=== PATIENT | female | born 1985 | race Caucasian/White ===

== ENCOUNTER 2016-07-02 18:16 | Emergency (ER) | payer MEDICAID, OTHER ==
[~2016-07-02] VITALS: Ht 162.6 cm; Wt 145.0 kg
[~2016-07-02 18:16] MED LIST: ALBU8I INH; BACT800T5 PO; CEPH500C3 PO; ROBA750T3 PO
[2016-07-02 18:17] VITALS: BP 172/82; PULSE 75; RESP 15; TEMP 98; O2SAT 96
[2016-07-02] MEDS ORDERED: ROBA750T PO (19:11)
[2016-07-02] MEDS ORDERED: DICL75TA PO (19:11)
[2016-07-02] MEDS ORDERED: METHOCARBAMOL 500 MG TAB PO ONE (19:15)
[2016-07-02] MEDS ORDERED: NAPROXEN 500 MG TAB PO ONE (19:15)
--- NOTE | 2016-07-02 19:17 | PD ---
HPI Chief Complaint: Back/ Neck Pain or Injury Time Seen by Provider: 19:13 Travel History International Travel<30 days: No Contact w/Intl Traveler<30days: No Traveled to known affect area: No History of Present Illness HPI 31-year-old white female presents to emergency Department with complaints of lower back pain. She states that she was bending over in her car and developed pain when she went to stand up. She states the pain was moderate to severe. She denies any history of direct trauma. She denies any history of back problems in the past. She denies any nausea vomiting. No numbness, tingling or weakness. No dysuria, frequency or hematuria. Worse with bending and movement some relief remaining still. PFSH Past Medical History Hx Anticoagulant Therapy: No Anemia: Yes Asthma: Yes Anxiety: Yes Depression: Yes Cardiovascular Problems: Yes (HTN) Chemotherapy: No Cerebrovascular Accident: No Diabetes: No Diminished Hearing: Yes (NEVER BEEN CONFIRMED) Gestational Age in Weeks: 17 Hiatal Hernia: Yes Reproductive: Yes (ENDOMETRIOSIS) Respiratory: Yes (ASTHMA) Immunizations Current: No Pneumonia: Yes (2009) Tetanus Vaccination: < 5 Years ?: Not LMP: 06/21/16 Menopausal: No : 3 Para: 2 Miscarriage: 1 : 0 Ectopic : No Ovarian Cysts: Yes Dilation and Curettage (D&C): Yes Tubal Ligation: No Past Surgical History Abdominal Surgery: Yes (EXPLORATORY LAP) Appendectomy: Yes (2009) Section: Yes (X 2) Gynecologic Surgery: Yes (endometriosis) Hysterectomy: No Social History Alcohol Use: Yes (occasional) Tobacco Use: Yes Substance Use: Yes (MARIJUANA ) Allergies-Medications (Allergen,Severity, Reaction): Coded Allergies: Adhesives (Verified Allergy, Severe, RASH, 07/02/16) Dairy (Verified Allergy, Severe, CONGESTION, 07/02/16) Latex (Verified Allergy, Severe, RASH, 07/02/16) Reported Meds & Prescriptions Reported Meds & Active Scripts Active Diclofenac Sodium DR (Diclofenac Sodium) 75 Mg Tabdr 75 Mg PO BID Robaxin (Methocarbamol) 750 Mg Tab 1,500 Mg PO TID 7 Days Review of Systems Except as stated in HPI: all other systems reviewed are Neg Physical Exam Narrative GENERAL: Well-developed, well-nourished in no apparent distress. Nontoxic appearing. HEAD: Normocephalic, atraumatic. EYES: Pupils equal round and reactive. Extraocular motions intact. No scleral icterus. No injection or drainage. ENT: Nose clear. Throat without erythema, tonsillar hypertrophy or exudate. Uvula midline. Airway patent. NECK: Trachea midline. Supple, nontender, moves head freely. No central bony tenderness or spasm. CARDIOVASCULAR: Regular rate and rhythm without murmurs, gallops, or rubs. RESPIRATORY: Clear to auscultation. Breath sounds equal bilaterally. No wheezes , rales, or rhonchi. GASTROINTESTINAL: Abdomen soft, non-tender, nondistended. No hepato-splenomegaly , or palpable masses. No guarding. EXTREMITIES: No clubbing, cyanosis, or edema. No joint tenderness. BACK: Diffuse lower back tenderness without deformity. No flank tenderness. Decreased for flexion to 70. No saddle anesthesia. No weakness. No gross spasm. NEUROLOGICAL: Awake, alert and oriented x 3 .Cranial nerves grossly intact. Motor and sensory grossly within normal limits. Normal speech. Data Data Last Documented VS Vital Signs Date Time Temp Pulse Resp B/P Pulse Ox O2 Delivery O2 Flow Rate FiO2 07/02/16 18:17 98.0 75 15 172/82 96 Orders Naproxen (Naprosyn) (07/02/16 19:15) Methocarbamol (Robaxin) (07/02/16 19:15) [facility] Medical Decision Making Medical Screen Exam Complete: Yes Emergency Medical Condition: Yes Medical Record Reviewed: Yes Differential Diagnosis MDM: High Differential diagnoses: AAA,Fracture, sprain, strain, HNP, nerve or vascular injury, epidural abscess, pilonidal cyst, pyelonephritis, UTI, nephrolithiasis, ureterolithiasis Narrative Course This is acute back strain Patient given Naprosyn 500 and Robaxin 1500 mg by mouth. Diagnosis Primary Impression: aCUTE BACK STRAIN Patient Instructions: General Instructions Departure Forms: Tests/Procedures, Work Release Special Instructions: No work 2 days. Additional Instructions: Rest. Ice for the next 3 days followed by heat . Robaxin and Voltaren. Follow-up with a primary care doctor in one week. Return to the ER for emergencies. Med/Other Pt SpecificInfo: Prescription(s) given Scripts Diclofenac Sodium DR 75 Mg Tabdr75 Mg PO BID #20 TAB Prov:Carlos Arora MD 07/02/16 Methocarbamol (Robaxin)750 Mg Tab1,500 Mg PO TID 7 Days Prov:Carlos Arora MD 07/02/16 Disposition: 01 DISCHARGE HOME Condition: Stable Epi Russell Jul 02, 2016 19:17
== END 2016-07-02 19:25 | disposition home or self-care (01) ==
LOC: NEPB 18:16
DX: S39.012A Strain of muscle, fascia and tendon of lower back, initial encounter (principal); J45.909 Unspecified asthma, uncomplicated; I10 Essential (primary) hypertension; Z72.0 Tobacco use; X50.1XXA Overexertion from prolonged static or awkward postures, initial encounter
CPT/HCPCS: 99283

== ENCOUNTER 2016-08-08 21:04 | Emergency (ER) | payer MEDICAID, OTHER ==
[~2016-08-08] VITALS: Ht 162.6 cm; Wt 145.0 kg
[~2016-08-08 21:04] MED LIST changes: -ALBU8I INH; -BACT800T5 PO; -CEPH500C3 PO; +DICL75TA PO; +ROBA750T PO; -ROBA750T3 PO
[2016-08-08 21:06] VITALS: BP 139/106; PULSE 81; RESP 16; TEMP 98.7; O2SAT 98
[2016-08-08] MEDS ORDERED: ALBUAER3 INH (21:43)
[2016-08-08] MEDS ORDERED: SODIUM CHLOR 0.9% 1000 ML INJ 1,000 ML IV SCH (21:48)
[2016-08-08] MEDS ORDERED: SODIUM CHLORIDE 0.9% FLUSH 10 ML FLUSH IV FLUSH PRN (22:00)
[2016-08-08] MEDS ORDERED: ONDANSETRON HCL 4 MG/2 ML VIAL IVP ONE (22:00)
[2016-08-08 22:23] LABS: AUTOMATED NEUTROPHIL # 5.5 TH/MM3 (1.8-7.7); BASOPHIL # 0.1 TH/MM3 (0-0.2); BASOPHIL % 0.5 % (0.0-2.0); EOSINOPHIL # 0.2 TH/MM3 (0-0.4); EOSINOPHIL % 1.9 % (0.0-4.0); HEMATOCRIT 38.5 % (35.0-46.0); HEMO FLAGS DIFF FINAL; LYMPHOCYTE # 3.3 TH/MM3 (1.0-4.8); MEAN CORPUSCULAR HGB CONC 32.1 % (32.0-36.0); MONO % 11.8 % (0.0-8.0); NEUT % 53.8 % (16.0-70.0); PLATELET COUNT 354 TH/MM3 (150-450); RED BLOOD COUNT 4.58 MIL/MM3 (4.00-5.30); RED CELL DISTRIBUTION WIDTH 15.5 % (11.6-17.2); WHITE BLOOD COUNT 10.3 TH/MM3 (4.0-11.0)
[2016-08-08 22:28] LABS: BLOOD, URINE NEG (NEG); COMMENT (UR) CULT NOT INDICATED; CULTURE IF INDICATED CULT NOT INDICATED; GLUCOSE,URINE NEG (NEG); KETONE, URINE NEG (NEG); MUCUS URINE FEW /lpf (OCC); NITRITE,URINE NEG (NEG); SQUAMOUS EPITHELIAL CELL URINE 6 /hpf (0-5); URINE COLOR YELLOW (YELLW/STRAW)
[2016-08-08 22:30] LABS: APTT (PATIENT) 28.5 SEC (24.3-30.1); INTERNATIONAL NORMALIZED RATIO 0.9 RATIO; PROTHROMBIN TIME - PATIENT 10.2 SEC (9.8-11.6)
[2016-08-08 22:41] LABS: ANION GAP 7 MEQ/L (5-15); AST (GOT) 13 U/L (15-37); BICARBONATE 29.9 MEQ/L (21.0-32.0); BLOOD UREA NITROGEN 8 MG/DL (7-18); CHLORIDE 105 MEQ/L (98-107); GLOMERULAR FILTRATION RATE 112 ML/MIN (>89); POTASSIUM 3.7 MEQ/L (3.5-5.1); SODIUM (NA) 142 MEQ/L (136-145)
[2016-08-08 22:46] LABS: ALKALINE PHOSPHATASE 83 U/L (45-117); ALT (GPT) 21 U/L (10-53); BETA HCG QUANT LESS THAN 1 MIU/ML (0-5); TOTAL BILIRUBIN ADULT 0.2 MG/DL (0.2-1.0)
[2016-08-08] MEDS ORDERED: AMOX500T PO (22:58)
--- NOTE | 2016-08-08 22:58 | PD ---
HPI Chief Complaint: GI Complaint Time Seen by Provider: 21:44 Travel History International Travel<30 days: No Contact w/Intl Traveler<30days: No Traveled to known affect area: No History of Present Illness HPI 31-year-old female here for evaluation of swollen tonsils, painful swallowing, and 3 episodes of vomiting. Symptoms have been going on for last 4 days. She is having some mild epigastric discomfort. She has had subjective fevers and chills. She is able to swallow, however she states it is difficult because of the pain. PFSH Past Medical History Hx Anticoagulant Therapy: No Anemia: Yes Asthma: Yes Anxiety: Yes Depression: Yes Cardiovascular Problems: Yes (HTN) Chemotherapy: No Cerebrovascular Accident: No Diabetes: No Diminished Hearing: Yes (NEVER BEEN CONFIRMED) Gestational Age in Weeks: 17 Hiatal Hernia: Yes Reproductive: Yes (ENDOMETRIOSIS) Respiratory: Yes (ASTHMA) Immunizations Current: No Pneumonia: Yes (2009) Tetanus Vaccination: > 5 Years Influenza Vaccination: No ?: Unknown LMP: 07/19/16 Menopausal: No : 3 Para: 2 Miscarriage: 1 : 0 Ectopic : No Ovarian Cysts: Yes Dilation and Curettage (D&C): Yes Tubal Ligation: No Past Surgical History Abdominal Surgery: Yes (EXPLORATORY LAP) Appendectomy: Yes (2009) Section: Yes (X 2) Gynecologic Surgery: Yes (endometriosis) Hysterectomy: No Social History Alcohol Use: Yes (occasional) Tobacco Use: Yes Substance Use: Yes (MARIJUANA ) Allergies-Medications (Allergen,Severity, Reaction): Coded Allergies: Adhesives (Verified Allergy, Severe, RASH, 08/08/16) Dairy (Verified Allergy, Severe, CONGESTION, 08/08/16) Latex (Verified Allergy, Severe, RASH, 08/08/16) Reported Meds & Prescriptions Reported Meds & Active Scripts Active Reported Proair Hfa 8.5 GM Inh (Albuterol Sulfate) 90 Mcg/Act Aer 2 Puff INH Q6H PRN 108 mcg/actuation Review of Systems Except as stated in HPI: all other systems reviewed are Neg Physical Exam Narrative GENERAL: Well-developed, well-nourished, overweight, comfortable, no acute distress. SKIN: Focused skin assessment warm/dry. No rash. HEAD: Atraumatic. Normocephalic. EYES: Pupils equal and round. No scleral icterus. No injection or drainage. ENT: No nasal bleeding or discharge. Mucous membranes pink and moist. Pharynx is erythematous with bilateral tonsillar exudates. Uvula is midline. Normal phonation. NECK: Trachea midline. No JVD. No nuchal rigidity. CARDIOVASCULAR: Regular rate and rhythm. RESPIRATORY: No accessory muscle use. Clear to auscultation. Breath sounds equal bilaterally. GASTROINTESTINAL: Abdomen soft, non-tender, nondistended. MUSCULOSKELETAL: No obvious deformities. No clubbing. No cyanosis. No edema. NEUROLOGICAL: Awake and alert. No obvious cranial nerve deficits. Motor grossly within normal limits. Normal speech. PSYCHIATRIC: Appropriate mood and affect; insight and judgment normal. Data Data Last Documented VS Vital Signs Date Time Temp Pulse Resp B/P Pulse Ox O2 Delivery O2 Flow Rate FiO2 08/08/16 21:06 98.7 81 16 139/106 98 Room Air Orders Complete Blood Count With Diff (08/08/16 21:48) Comprehensive Metabolic Panel (08/08/16 21:48) Prothrombin Time / Inr (Pt) (08/08/16 21:48) Act Partial Throm Time (Ptt) (08/08/16 21:48) Urinalysis - C+S If Indicated (08/08/16 21:48) Iv Access Insert/Monitor (08/08/16 21:48) Ecg Monitoring (08/08/16 21:48) Oximetry (08/08/16 21:48) Ondansetron Inj (Zofran Inj) (08/08/16 22:00) Sodium Chlor 0.9% 1000 Ml Inj (Ns 1000 M (08/08/16 21:48) Sodium Chloride 0.9% Flush (Ns Flush) (08/08/16 22:00) Ed Urine Pregnancytest Poc (08/08/16 21:48) Group A Rapid Strep Screen (08/08/16 21:49) Monoscreen (08/08/16 21:49) Beta Hcg (Quant/Titer) (08/08/16 22:00) Ketorolac Inj (Toradol Inj) (08/08/16 23:00) Dexamethasone Inj (Decadron Inj) (08/08/16 23:00) Labs Laboratory Tests Test 08/08/16 08/08/16 11:59 22:00 Prothrombin Time 10.2 SEC Prothromb Time International 0.9 RATIO Ratio Activated Partial 28.5 SEC Thromboplast Time White Blood Count 10.3 TH/MM3 Red Blood Count 4.58 MIL/MM3 Hemoglobin 12.4 GM/DL Hematocrit 38.5 % Mean Corpuscular Volume 84.0 FL Mean Corpuscular Hemoglobin 27.0 PG Mean Corpuscular Hemoglobin 32.1 % Concent Red Cell Distribution Width 15.5 % Platelet Count 354 TH/MM3 Mean Platelet Volume 8.3 FL Neutrophils (%) (Auto) 53.8 % Lymphocytes (%) (Auto) 32.0 % Monocytes (%) (Auto) 11.8 % Eosinophils (%) (Auto) 1.9 % Basophils (%) (Auto) 0.5 % Neutrophils # (Auto) 5.5 TH/MM3 Lymphocytes # (Auto) 3.3 TH/MM3 Monocytes # (Auto) 1.2 TH/MM3 Eosinophils # (Auto) 0.2 TH/MM3 Basophils # (Auto) 0.1 TH/MM3 CBC Comment DIFF FINAL Differential Comment Urine Color YELLOW Urine Turbidity CLEAR Urine pH 7.0 Urine Specific Bowden 1.021 Urine Protein TRACE mg/dL Urine Glucose (UA) NEG mg/dL Urine Ketones NEG mg/dL Urine Occult Blood NEG Urine Nitrite NEG Urine Bilirubin NEG Urine Urobilinogen LESS THAN 2.0 MG/DL Urine Leukocyte Esterase NEG Urine RBC 3 /hpf Urine WBC 3 /hpf Urine Squamous Epithelial 6 /hpf Cells Urine Mucus FEW /lpf Microscopic Urinalysis Comment CULT NOT INDICATED Sodium Level 142 MEQ/L Potassium Level 3.7 MEQ/L Chloride Level 105 MEQ/L Carbon Dioxide Level 29.9 MEQ/L Anion Gap 7 MEQ/L Blood Urea Nitrogen 8 MG/DL Creatinine 0.63 MG/DL Estimat Glomerular Filtration 112 ML/MIN Rate Random Glucose 80 MG/DL Calcium Level 8.8 MG/DL Total Bilirubin 0.2 MG/DL Aspartate Amino Transf 13 U/L (AST/SGOT) Alanine Aminotransferase 21 U/L (ALT/SGPT) Alkaline Phosphatase 83 U/L Total Protein 7.8 GM/DL Albumin 3.3 GM/DL Human Chorionic Gonadotropin, LESS THAN 1 Quant MIU/ML Monoscreen NEG MDM Medical Decision Making Medical Screen Exam Complete: Yes Emergency Medical Condition: Yes Differential Diagnosis Pharyngitis, strep pharyngitis, mono, dehydration, peritonsillar abscess/ retropharyngeal abscess unlikely Narrative Course Vital signs show heart rate 81, blood pressure 139/106, pulse ox 98% on room air , oral temp of 98.7F. CBC is unremarkable. CMP is unremarkable. Beta hCG is negative. UA is not suggestive of UTI. Steele is negative. Group A strep is positive. The patient was made aware of all findings. She is resting comfortably. She was given a dose of Decadron and IV Toradol here in the emergency department. She was also given a dose of amoxicillin and will be discharged home with a prescription for amoxicillin. PMD follow-up this week. She was informed on when to return to the emergency department. She verbalizes understanding and agreement with plan. Diagnosis Primary Impression: Strep pharyngitis Referrals: Primary Care Physician 3 days Additional Instructions: Follow-up with a primary care physician this week. Take antibiotics as prescribed. Stay hydrated with plenty of fluids. Return to the emergency department for worsening symptoms or any other concerns. Scripts Amoxicillin 500 Mg Tab1,000 Mg PO DAILY 10 Days Ref 0 Prov:Brandon Bustamante MD 08/08/16 Disposition: 01 DISCHARGE HOME Condition: Stable Brandon Bustamante MD Aug 08, 2016 22:58
[2016-08-08] MEDS ORDERED: DEXAMETHASONE SOD PHOS 20 MG/5 ML VIAL IV PUSH ONE (23:00)
[2016-08-08] MEDS ORDERED: AMOXICILLIN (TRIHYDRATE) 500 MG CAP PO ONE (23:00)
[2016-08-08] MEDS ORDERED: KETOROLAC TROMETHAMINE 30 MG/ML (IVP) VIAL IV PUSH ONE (23:00)
[2016-08-08] MEDS ORDERED: diphenhydrAMINE HCL 50 MG/ML VIAL IV PUSH ONE (23:30)
[2016-08-08 23:32] VITALS: BP 138/98
== END 2016-08-08 23:33 | disposition home or self-care (01) ==
LOC: NEPD 21:04
DX: J02.0 Streptococcal pharyngitis (principal); I10 Essential (primary) hypertension; B95.1 Streptococcus, group B, as the cause of diseases classified elsewhere
CPT/HCPCS: 80053; 81001; 84702; 84703; 85025; 85610; 85730; 86308; 87880; 96361; 96374; 96375; 99283; J1100; J1200; J1885; J2405; J7030

== ENCOUNTER 2016-11-13 09:43 | Emergency (ER) | payer MEDICAID, OTHER ==
[~2016-11-13] VITALS: Ht 162.6 cm; Wt 125.0 kg
[~2016-11-13 09:43] MED LIST changes: +ALBUAER3 INH; +AMOX500T PO; -DICL75TA PO; -ROBA750T PO
[2016-11-13 09:46] VITALS: BP 161/90; PULSE 84; RESP 20; TEMP 99.5; O2SAT 97
--- NOTE | 2016-11-13 10:02 | PD ---
HPI Chief Complaint: Pain: Acute or Chronic Time Seen by Provider: 09:56 Travel History International Travel<30 days: No Contact w/Intl Traveler<30days: No Traveled to known affect area: No History of Present Illness HPI 31-year-old obese female presents the emergency department with history of right foot and ankle pain for several weeks, worse when she first gets up and with standing, presents the emergency department with increased pain in the right calf and thigh over the past 2 days. Patient denies fever, chills, numbness, low back pain, weakness, or cough or shortness of breath. She denies any specific injury. Pain is 8/10 and worse with palpation and movement. She is allergic to adhesives, dairy, and latex. PFSH Past Medical History Hx Anticoagulant Therapy: No Anemia: Yes Asthma: Yes Anxiety: Yes Depression: Yes Cardiovascular Problems: Yes (HTN) Chemotherapy: No Cerebrovascular Accident: No Diabetes: No Diminished Hearing: Yes (NEVER BEEN CONFIRMED) Gestational Age in Weeks: 17 Hiatal Hernia: Yes Reproductive: Yes (ENDOMETRIOSIS) Respiratory: Yes (ASTHMA) Immunizations Current: No Pneumonia: Yes (2009) ?: Not LMP: 10/17/16 Menopausal: No : 3 Para: 2 Miscarriage: 1 : 0 Ectopic : No Ovarian Cysts: Yes Dilation and Curettage (D&C): Yes Tubal Ligation: No Past Surgical History Abdominal Surgery: Yes (EXPLORATORY LAP) Appendectomy: Yes (2009) Section: Yes (X 2) Gynecologic Surgery: Yes (endometriosis) Hysterectomy: No Social History Alcohol Use: Yes (occasional) Tobacco Use: Yes Substance Use: Yes (MARIJUANA ) Allergies-Medications (Allergen,Severity, Reaction): Coded Allergies: Adhesives (Verified Allergy, Severe, RASH, 11/13/16) Dairy (Verified Allergy, Severe, CONGESTION, 11/13/16) Latex (Verified Allergy, Severe, RASH, 11/13/16) Reported Meds & Prescriptions Reported Meds & Active Scripts Active Reported Proair Hfa 8.5 GM Inh (Albuterol Sulfate) 90 Mcg/Act Aer 2 Puff INH Q6H PRN 108 mcg/actuation Review of Systems Except as stated in HPI: all other systems reviewed are Neg General / Constitutional: No: Fever Eyes: No: Visual changes HENT: No: Headaches Cardiovascular: No: Chest Pain or Discomfort Respiratory: No: Shortness of Breath Gastrointestinal: No: Abdominal Pain Genitourinary: No: Dysuria Musculoskeletal: Positive: Myalgias, Arthralgias, Limited ROM, Pain (see history of present illness) Skin: No Rash Neurologic: No: Weakness Psychiatric: No: Depression Endocrine: No: Polydipsia Hematologic/Lymphatic: No: Easy Bruising Physical Exam Narrative GENERAL: Patient appears distress. She is morbidly obese. SKIN: Warm and dry. Normal color. Normal turgor. No signs of infection. HEAD: Atraumatic. Normocephalic. EYES: Pupils equal and round. No scleral icterus. No injection or drainage. ENT: No nasal bleeding or discharge. Mucous membranes pink and moist. Pharynx is clear. Airway is patent. NECK: Trachea midline. Supple nontender. CARDIOVASCULAR: Regular rate and rhythm. RESPIRATORY: No accessory muscle use. Clear to auscultation. Breath sounds equal bilaterally. GASTROINTESTINAL: Abdomen soft, non-tender, nondistended. Hepatic and splenic margins not palpable. MUSCULOSKELETAL: Extremities without clubbing, cyanosis, or edema. No obvious deformities. Patient has pain with palpation of the sole of the right foot consistent with plantar fasciitis. Patient also has positive Homans sign on the right as well as pain with palpation of the calf and right upper medial thigh consistent with possible DVT. Edema is difficult to quantify secondary to the patient's body habitus. NEUROLOGICAL: Awake and alert. No obvious cranial nerve deficits. Motor grossly within normal limits. Five out of 5 muscle strength in the arms and legs. Normal speech. PSYCHIATRIC: Appropriate mood and affect; insight and judgment normal. Data Data Last Documented VS Vital Signs Date Time Temp Pulse Resp B/P Pulse Ox O2 Delivery O2 Flow Rate FiO2 11/13/16 09:46 99.5 84 20 161/90 97 Room Air Orders Us Leg Venous Doppler (11/13/16 10:02) [facility] Medical Decision Making Medical Screen Exam Complete: Yes Emergency Medical Condition: Yes Medical Record Reviewed: Yes Differential Diagnosis Plantar fasciitis. Arthritis. DVT. Narrative Course Patient is medically stable at time of exam. Ultrasound is ordered to evaluate the right lower extremity for DVT. Ultrasound is negative for DVT. Patient will be treated with ibuprofen 800 mg 3 times daily with food. Patient also treated with Tylenol 500 mg 2 tabs every 6 hours when necessary pain #60. Patient is felt to have plantar fasciitis and instructions were given regarding this. She is referred to a local primary care physician for further evaluation and treatment if he continues. Patient can return the emergency Department with worsening symptoms as needed. Diagnosis Primary Impression: Plantar fasciitis of right foot Referrals: [facility] [place] [facility] Patient Instructions: General Instructions, Plantar Fasciitis (ED), Plantar Fasciitis Exercises (GEN) Departure Forms: Work Release Enter return to work date: Nov 15, 2016 Additional Instructions: Ultrasound is negative for DVT. Patient will be treated with ibuprofen 800 mg 3 times daily with food. Patient also treated with Tylenol 500 mg 2 tabs every 6 hours when necessary pain #60. Patient is felt to have plantar fasciitis and instructions were given regarding this. She is referred to a local primary care physician for further evaluation and treatment if he continues. Patient can return the emergency Department with worsening symptoms as needed. Med/Other Pt SpecificInfo: Prescription(s) given Disposition: 01 DISCHARGE HOME Condition: Stable Roman Woodson Nov 13, 2016 10:02
--- NOTE | 2016-11-13 11:21 | RADRPT ---
EXAM DATE/TIME: 11/13/2016 10:15 [place] COMPARISON: No previous studies available for comparison. INDICATIONS : Right leg pain. MEDICAL HISTORY : Hypertension. SURGICAL HISTORY : Appendectomy. section. D&C. Exploratory lap. ENCOUNTER: Initial ACUITY: 1 week PAIN SCORE: 6/10 LOCATION: Right leg. TECHNIQUE: Venous ultrasound of the leg was performed from the inguinal ligament to the proximal calf. Real-francois e, color Doppler and spectral tracing, compression and augmentation techniques were used. FINDINGS: There is normal compressibility of the deep venous system from the inguinal region to the proximal ca lf. No echogenic clot is seen in the lumen of the common femoral, femoral, popliteal, and posterior tibial veins. There is a normal response of the venous system to proximal and distal augmentation an d respiration. CONCLUSION: Normal examination. Gerhard Guardado MD on November 13, 2016 at 11:19 Board Certified Radiologist. This report was verified electronically.
[2016-11-13] MEDS ORDERED: NON-500T13 PO (11:36)
[2016-11-13] MEDS ORDERED: IBUP800T23 PO (11:36)
== END 2016-11-13 12:16 | disposition home or self-care (01) ==
LOC: NEPK 09:43
DX: M72.2 Plantar fascial fibromatosis (principal); D64.9 Anemia, unspecified; I10 Essential (primary) hypertension; J45.909 Unspecified asthma, uncomplicated; F41.9 Anxiety disorder, unspecified; F32.9 Major depressive disorder, single episode, unspecified; Z72.0 Tobacco use; Z79.899 Other long term (current) drug therapy
CPT/HCPCS: 93971

== ENCOUNTER 2016-12-30 00:21 | Emergency (ER) | payer MEDICAID ==
[~2016-12-30] VITALS: Ht 162.6 cm; Wt 170.0 kg
[~2016-12-30 00:21] MED LIST changes: -AMOX500T PO; +IBUP800T23 PO; +NON-500T13 PO
[2016-12-30 00:23] VITALS: BP 139/100; PULSE 82; RESP 16; TEMP 98; O2SAT 98
--- NOTE | 2016-12-30 01:11 | PD ---
HPI Chief Complaint: Fall Time Seen by Provider: 01:07 Travel History International Travel<30 days: No Contact w/Intl Traveler<30days: No Traveled to known affect area: No History of Present Illness HPI 31-year-old white female presents to emergency department for evaluation of a slip and fall this afternoon around 430 in the afternoon. She states that she has slipped on the outside steps due to the rain. She fell down onto her buttocks. She states that she had gotten up and went to work. While at work she developed pain in both ankles, left posterior thigh and right wrist. She was told by her supervisor edging to get checked out. She denies hitting her head. No neck or back pain. Pain is mild. PFSH Past Medical History Hx Anticoagulant Therapy: No Anemia: Yes Asthma: Yes Anxiety: Yes Depression: Yes Cardiovascular Problems: Yes (HTN) Chemotherapy: No Cerebrovascular Accident: No Diabetes: No Diminished Hearing: No Gestational Age in Weeks: 17 Hiatal Hernia: Yes Reproductive: Yes (ENDOMETRIOSIS) Respiratory: Yes (ASTHMA) Immunizations Current: No Pneumonia: Yes (2009) Influenza Vaccination: No ?: Not LMP: 12/17/16 Menopausal: No : 3 Para: 2 Miscarriage: 1 : 0 Ectopic : No Ovarian Cysts: Yes Dilation and Curettage (D&C): Yes Tubal Ligation: No Past Surgical History Abdominal Surgery: Yes (EXPLORATORY LAP) Appendectomy: Yes (2009) Section: Yes (X 2) Gynecologic Surgery: Yes (endometriosis) Hysterectomy: No Social History Alcohol Use: Yes (occasional) Tobacco Use: No Substance Use: No Allergies-Medications (Allergen,Severity, Reaction): Coded Allergies: adhesive (Unverified Allergy, Severe, RASH, 12/30/16) lactose (Unverified Allergy, Severe, CONGESTION, 12/30/16) latex (Unverified Allergy, Severe, RASH, 12/30/16) Reported Meds & Prescriptions Reported Meds & Active Scripts Active Ibuprofen 800 Mg Tab 800 Mg PO Q8H PRN Non-Aspirin Pain Relief ES (Acetaminophen) 500 Mg Tab 500 Mg PO Q6HR PRN Reported Proair Hfa 8.5 GM Inh (Albuterol Sulfate) 90 Mcg/Act Aer 2 Puff INH Q6H PRN 108 mcg/actuation Review of Systems Except as stated in HPI: all other systems reviewed are Neg Physical Exam Narrative GENERAL: Well-developed, morbidly obese in no apparent distress. Nontoxic appearing. HEAD: Normocephalic, atraumatic. EYES: Pupils equal round and reactive. Extraocular motions intact. No scleral icterus. No injection or drainage. ENT: Nose clear. Throat without erythema, tonsillar hypertrophy or exudate. Uvula midline. Airway patent. NECK: Trachea midline. Supple, nontender, moves head freely. No central bony tenderness or spasm. CARDIOVASCULAR: Regular rate and rhythm without murmurs, gallops, or rubs. RESPIRATORY: Clear to auscultation. Breath sounds equal bilaterally. No wheezes , rales, or rhonchi. GASTROINTESTINAL: Abdomen soft, non-tender, nondistended. No hepato-splenomegaly , or palpable masses. No guarding. EXTREMITIES: No clubbing, cyanosis, or edema. No joint tenderness. BACK: Nontender without deformity. No flank tenderness. NEUROLOGICAL: Awake, alert and oriented x 3 .Cranial nerves grossly intact. Motor and sensory grossly within normal limits. Normal speech. Data Data Last Documented VS Vital Signs Date Time Temp Pulse Resp B/P (MAP) Pulse Ox O2 Delivery O2 Flow Rate FiO2 12/30/16 00:23 98.0 82 16 139/100 (113) 98 Room Air Orders Orders Ibuprofen (Motrin) (12/30/16 01:15) Cyclobenzaprine (Flexeril) (12/30/16 01:15) [facility] Medical Decision Making Medical Screen Exam Complete: Yes Emergency Medical Condition: Yes Medical Record Reviewed: Yes Differential Diagnosis MDM: High Differential diagnoses: Fracture, sprain, strain, dislocation, contusion, neurovascular injury Narrative Course Patient's exam shows only soft tissue tenderness. There is no bony tenderness. Imaging is not indicated. Patient's given Motrin 800 mg and Flexeril 10 mg by mouth and discharged in stable condition. Diagnosis Primary Impression: Fall Qualified Codes: W19.XXXA - Unspecified fall, initial encounter Additional Impression: Multiple contusions Patient Instructions: General Instructions Departure Forms: Tests/Procedures, Work Release Special Instructions: No work 3 days. Additional Instructions: Rest. Ice for the next 3 days followed by heat . Continue home medications. Follow-up with a primary care doctor in one week. Return to the ER for emergencies. Disposition: DISCHARGE HOME Condition: Stable Epi Russell Dec 30, 2016:11
[2016-12-30] MEDS ORDERED: CYCLOBENZAPRINE HCL 10 MG TAB PO ONE (01:15)
[2016-12-30] MEDS ORDERED: IBUPROFEN 800 MG TAB PO ONE (01:15)
== END 2016-12-30 01:52 | disposition home or self-care (01) ==
LOC: NEPD 00:21
DX: T14.8 Other injury of unspecified body region (principal); W01.0XXA Fall on same level from slipping, tripping and stumbling without subsequent striking against object, initial encounter
CPT/HCPCS: 99283

== ENCOUNTER 2017-05-07 23:43 | Emergency (ER) | payer MEDICAID ==
[~2017-05-07] VITALS: Ht 162.6 cm; Wt 162.0 kg
[~2017-05-07 23:43] MED LIST changes: +IBUP1TAB7 PO; -IBUP800T23 PO
[2017-05-07 23:47] VITALS: BP 193/86; PULSE 92; RESP 20; TEMP 98.7; O2SAT 99
[2017-05-07 23:59] VITALS: BP 169/78; PULSE 88; RESP 20; O2SAT 99
[2017-05-08 00:36] LABS: AMORPHOUS SEDIMENT, URINE RARE; BACTERIA, URINE RARE /hpf; BILIRUBIN, URINE NEG (NEG); BLOOD, URINE MOD (NEG); GLUCOSE,URINE NEG (NEG); KETONE, URINE NEG (NEG); MUCUS URINE FEW /lpf (OCC); NITRITE,URINE NEG (NEG); PH, URINE 5.5 (5.0-8.5); SQUAMOUS EPITHELIAL CELL URINE 9 /hpf (0-5); URINE COLOR YELLOW (YELLW/STRAW); URINE LEUKOCYTE ESTERASE MOD (NEG)
[2017-05-08 00:43] LABS: AUTOMATED NEUTROPHIL # 5.3 TH/MM3 (1.8-7.7); BASOPHIL % 0.2 % (0.0-2.0); EOSINOPHIL # 0.2 TH/MM3 (0-0.4); EOSINOPHIL % 2.8 % (0.0-4.0); HEMATOCRIT 34.8 % (35.0-46.0); LYMPH % 20.4 % (9.0-44.0); LYMPHOCYTE # 1.6 TH/MM3 (1.0-4.8); MEAN CELL VOLUME 84.5 FL (80.0-100.0); MEAN CORPUSCULAR HEMOGLOBIN 29.1 PG (27.0-34.0); MEAN CORPUSCULAR HGB CONC 34.5 % (32.0-36.0); MEAN PLATELET VOLUME 8.4 FL (7.0-11.0); MONOCYTE # 0.6 TH/MM3 (0-0.9); NEUT % 68.6 % (16.0-70.0); PLATELET COUNT 319 TH/MM3 (150-450); RED BLOOD COUNT 4.12 MIL/MM3 (4.00-5.30); RED CELL DISTRIBUTION WIDTH 14.6 % (11.6-17.2); WHITE BLOOD COUNT 7.7 TH/MM3 (4.0-11.0)
[2017-05-08] MEDS ORDERED: PANTOPRAZOLE SODIUM 40 MG VIAL IV PUSH ONE (00:45)
[2017-05-08] MEDS ORDERED: ONDANSETRON HCL 4 MG/2 ML VIAL IV PUSH ONE (00:45)
[2017-05-08] MEDS ORDERED: SODIUM CHLOR 0.9% 1000 ML INJ 1,000 ML IV ONE (00:45)
[2017-05-08 00:51] LABS: ALBUMIN 3.3 GM/DL (3.4-5.0); ALT (GPT) 20 U/L (10-53); AST (GOT) 15 U/L (15-37); BICARBONATE 30.5 MEQ/L (21.0-32.0); BLOOD UREA NITROGEN 7 MG/DL (7-18); CALCIUM 7.9 MG/DL (8.5-10.1); CHLORIDE 105 MEQ/L (98-107); CREATININE 0.69 MG/DL (0.50-1.00); GLOMERULAR FILTRATION RATE 100 ML/MIN (>89); GLUCOSE,RANDOM 88 MG/DL (74-106); LIPASE 152 U/L (73-393); SODIUM (NA) 141 MEQ/L (136-145)
[2017-05-08 00:54] LABS: ALKALINE PHOSPHATASE 85 U/L (45-117); TOTAL BILIRUBIN ADULT 0.2 MG/DL (0.2-1.0); TOTAL PROTEIN 7.3 GM/DL (6.4-8.2)
--- NOTE | 2017-05-08 01:11 | PD ---
HPI Chief Complaint: Abdominal Pain Time Seen by Provider: 23:53 Travel History International Travel<30 days: No Contact w/Intl Traveler<30days: No History of Present Illness HPI Patient reports 2 days of abdominal pain bilateral lower back , not improved with motrin , also lower back pain and surppubic pressure increased with squatting or bending over exacerbates pressure like pain, She has not seen another MD for this complaint. PFSH Past Medical History Hx Anticoagulant Therapy: No Anemia: Yes Asthma: Yes Anxiety: Yes Depression: Yes Cardiovascular Problems: Yes (HTN) Chemotherapy: No Cerebrovascular Accident: No Diabetes: No Diminished Hearing: No Gestational Age in Weeks: 17 Hiatal Hernia: Yes Reproductive: Yes (ENDOMETRIOSIS) Respiratory: Yes (ASTHMA) Immunizations Current: No Pneumonia: Yes (2009) Influenza Vaccination: No ?: Unknown LMP: 12-17 Menopausal: No : 3 Para: 2 Miscarriage: 1 : 0 Ectopic : No Ovarian Cysts: Yes Dilation and Curettage (D&C): Yes Tubal Ligation: No Past Surgical History Abdominal Surgery: Yes (EXPLORATORY LAP) Appendectomy: Yes (2009) Section: Yes (X 2) Gynecologic Surgery: Yes (endometriosis) Hysterectomy: No Social History Alcohol Use: Yes (occasional) Tobacco Use: No Substance Use: No Allergies-Medications (Allergen,Severity, Reaction): Coded Allergies: adhesive (Unverified Allergy, Severe, RASH, 12/30/16) lactose (Unverified Allergy, Severe, CONGESTION, 12/30/16) latex (Unverified Allergy, Severe, RASH, 12/30/16) Reported Meds & Prescriptions Reported Meds & Active Scripts Active Guaifenesin AC Liq (Guaifenesin-Codeine Liq) 100-10 Mg/5 Ml Syrp 5 Ml PO Q4-6H PRN Pyridium (Phenazopyridine HCl) 100 Mg Tab 100 Mg PO Q8H PRN Keflex (Cephalexin) 500 Mg Cap 500 Mg PO Q8H Ibuprofen 800 Mg Tab 800 Mg PO Q8H PRN Non-Aspirin Pain Relief ES (Acetaminophen) 500 Mg Tab 500 Mg PO Q6HR PRN Reported Proair Hfa 8.5 GM Inh (Albuterol Sulfate) 90 Mcg/Act Aer 2 Puff INH Q6H PRN 108 mcg/actuation Review of Systems Except as stated in HPI: all other systems reviewed are Neg Gastrointestinal: Positive: Abdominal Pain Genitourinary: Positive: Urgency, Frequency Musculoskeletal: Positive: Myalgias (lower back ache and worse when she bends over) Physical Exam Narrative GENERAL: Nontoxic awake alert no distress SKIN: Warm and dry. HEAD: Atraumatic. Normocephalic. EYES: Pupils equal and round. No scleral icterus. No injection or drainage. ENT: No nasal bleeding or discharge. Mucous membranes pink and moist. NECK: Trachea midline. No JVD. CARDIOVASCULAR: Regular rate and rhythm. RESPIRATORY: No accessory muscle use. Clear to auscultation. Breath sounds equal bilaterally. GASTROINTESTINAL: Abdomen soft, suprapubic-tender, nondistended. Hepatic and splenic margins not palpable. Lower excavator backhoe operator MUSCULOSKELETAL: Extremities without clubbing, cyanosis, or edema. No obvious deformities. NEUROLOGICAL: Awake and alert. No obvious cranial nerve deficits. Motor grossly within normal limits. Five out of 5 muscle strength in the arms and legs. Normal speech. PSYCHIATRIC: Appropriate mood and affect; insight and judgment normal. Data Data Last Documented VS Vital Signs Date Time Temp Pulse Resp B/P (MAP) Pulse Ox O2 Delivery O2 Flow Rate FiO2 05/08/17 03:10 05/07/17 23:59 88 20 99 Room Air 05/07/17 23:47 98.7 Orders Orders Complete Blood Count With Diff (05/08/17 00:18) Comprehensive Metabolic Panel (05/08/17 00:18) Urinalysis - C+S If Indicated (05/08/17 00:18) Ed Urine Pregnancytest Poc (05/08/17 00:18) Iv Access Insert/Monitor (05/08/17 00:18) Oximetry (05/08/17 00:18) Lipase (05/08/17 00:18) Urine Culture (05/08/17 00:15) Pantoprazole Inj (Protonix Inj) (05/08/17 00:45) Ondansetron Inj (Zofran Inj) (05/08/17 00:45) Sodium Chlor 0.9% 1000 Ml Inj (Ns 1000 M (05/08/17 00:45) Cefazolin 2 Gm Premix (Ancef 2 Gm Premix (05/08/17 01:15) Phenazopyridine (Pyridium) (05/08/17 01:15) Guaifen-Cod 200-20 Mg/10ml Liq (Robituss (05/08/17 01:15) Ketorolac Inj (Toradol Inj) (05/08/17 01:30) Group A Rapid Strep Screen (05/08/17 01:54) Strep Culture (Group A) (05/08/17 01:30) Ed Discharge Order (05/08/17 02:59) Labs Laboratory Tests Test 05/08/17 00:15 05/08/17 00:20 Urine Color YELLOW Urine Turbidity HAZY Urine pH 5.5 Urine Specific [place] 1.021 Urine Protein NEG mg/dL Urine Glucose (UA) NEG mg/dL Urine Ketones NEG mg/dL Urine Occult Blood MOD Urine Nitrite NEG Urine Bilirubin NEG Urine Urobilinogen LESS THAN 2.0 MG/DL Urine Leukocyte Esterase MOD Urine RBC 11 /hpf Urine WBC 22 /hpf Urine Squamous Epithelial Cells 9 /hpf Urine Amorphous Sediment RARE Urine Bacteria RARE /hpf Urine Mucus FEW /lpf Microscopic Urinalysis Comment CULTURE INDICATED White Blood Count 7.7 TH/MM3 Red Blood Count 4.12 MIL/MM3 Hemoglobin 12.0 GM/DL Hematocrit 34.8 % Mean Corpuscular Volume 84.5 FL Mean Corpuscular Hemoglobin 29.1 PG Mean Corpuscular Hemoglobin Concent 34.5 % Red Cell Distribution Width 14.6 % Platelet Count 319 TH/MM3 Mean Platelet Volume 8.4 FL Neutrophils (%) (Auto) 68.6 % Lymphocytes (%) (Auto) 20.4 % Monocytes (%) (Auto) 8.0 % Eosinophils (%) (Auto) 2.8 % Basophils (%) (Auto) 0.2 % Neutrophils # (Auto) 5.3 TH/MM3 Lymphocytes # (Auto) 1.6 TH/MM3 Monocytes # (Auto) 0.6 TH/MM3 Eosinophils # (Auto) 0.2 TH/MM3 Basophils # (Auto) 0.0 TH/MM3 CBC Comment DIFF FINAL Differential Comment Blood Urea Nitrogen 7 MG/DL Creatinine 0.69 MG/DL Random Glucose 88 MG/DL Total Protein 7.3 GM/DL Albumin 3.3 GM/DL Calcium Level 7.9 MG/DL Alkaline Phosphatase 85 U/L Aspartate Amino Transf (AST/SGOT) 15 U/L Alanine Aminotransferase (ALT/SGPT) 20 U/L Total Bilirubin 0.2 MG/DL Sodium Level 141 MEQ/L Potassium Level 3.4 MEQ/L Chloride Level 105 MEQ/L Carbon Dioxide Level 30.5 MEQ/L Anion Gap 6 MEQ/L Estimat Glomerular Filtration Rate 100 ML/MIN Lipase 152 U/L MDM Medical Decision Making Medical Screen Exam Complete: Yes Emergency Medical Condition: Yes Differential Diagnosis Suprapubic pain UTI versus pyelonephritis versus low back strain versus abdominal wall strain Narrative Course Patient is 22 white blood cells in the urine with classic symptoms of frequency dysuria and low back pain she is given 2 g of Ancef in the ER and discharged home with Keflex she is given Pyridium as well the ER and is discharged with 2 days of peridium every 8 follow-up as an outpatient discharged Diagnosis Primary Impression: Urinary tract bacterial infections Additional Impression: Cough Patient Instructions: General Instructions, Urinary Tract Infection in Women ( ED) Scripts Guaifenesin-Codeine Liq (Guaifenesin AC Liq) 100-10 Mg/5 Ml Syrp 5 ML PO Q4-6H Y for COUGH, #60 ML 0 Refills Prov: Seferino Pfeiffer MD 05/08/17 Phenazopyridine (Pyridium) 100 Mg Tab 100 MG PO Q8H Y for DYSURIA, #6 TAB 0 Refills Prov: Seferino Pfeiffer MD 05/08/17 Cephalexin (Keflex) 500 Mg Cap 500 MG PO Q8H for Infection, #21 CAP 0 Refills Prov: Seferino Pfeiffer MD 05/08/17 Seferino Pfeiffer MD May 08, 2017 01:11
[2017-05-08] MEDS ORDERED: ceFAZolin 2 GM PREMIX 50 ML IV ONE (01:15)
[2017-05-08] MEDS ORDERED: guaiFENesin/CODEINE SYRUP 200 MG/20 MG/10 ML CUP PO ONE (01:15)
[2017-05-08] MEDS ORDERED: PHENAZOPYRIDINE HCL 200 MG TAB PO ONE (01:15)
[2017-05-08] MEDS ORDERED: KETOROLAC TROMETHAMINE 30 MG/ML (IVP) VIAL IV PUSH ONE (01:30)
[2017-05-08] MEDS ORDERED: PHEN0.4T PO (02:25)
[2017-05-08] MEDS ORDERED: CEPH-460 PO (02:25)
[2017-05-08] MEDS ORDERED: GUAISYP4 PO (02:47)
== END 2017-05-08 03:16 | disposition home or self-care (01) ==
LOC: NEPC 23:43
DX: N39.0 Urinary tract infection, site not specified (principal); R05 Cough; I10 Essential (primary) hypertension; J45.909 Unspecified asthma, uncomplicated; F32.9 Major depressive disorder, single episode, unspecified; F41.9 Anxiety disorder, unspecified
CPT/HCPCS: 80053; 81001; 83690; 84703; 85025; 87081; 87086; 87880; 96374; 96375; 99284; C9113; J0690; J1885; J2405; J7030

== ENCOUNTER 2017-07-02 22:19 | Emergency (ER) | payer MEDICAID ==
[~2017-07-02] VITALS: Ht 162.6 cm; Wt 160.0 kg
[~2017-07-02 22:19] MED LIST changes: +CEPH-460 PO; +GUAISYP4 PO; +PHEN0.4T PO
[2017-07-02 22:25] VITALS: BP 156/79; PULSE 89; RESP 20; TEMP 98.5; O2SAT 100
[2017-07-02] MEDS ORDERED: ONDANSETRON HCL 4 MG/2 ML VIAL IV PUSH ONE (23:00)
[2017-07-02] MEDS ORDERED: SODIUM CHLORIDE 0.9% FLUSH 10 ML FLUSH IVF PRN (23:00)
[2017-07-02] MEDS ORDERED: KETOROLAC TROMETHAMINE 30 MG/ML (IVP) VIAL IV PUSH ONE (23:00)
[2017-07-02 23:58] LABS: AUTOMATED NEUTROPHIL # 7.4 TH/MM3 (1.8-7.7); BASOPHIL # 0.1 TH/MM3 (0-0.2); BASOPHIL % 0.7 % (0.0-2.0); EOSINOPHIL # 0.1 TH/MM3 (0-0.4); EOSINOPHIL % 1.3 % (0.0-4.0); HEMATOCRIT 38.3 % (35.0-46.0); HEMOGLOBIN 12.7 GM/DL (11.6-15.3); LYMPH % 27.2 % (9.0-44.0); LYMPHOCYTE # 3.1 TH/MM3 (1.0-4.8); MEAN CELL VOLUME 83.8 FL (80.0-100.0); MEAN CORPUSCULAR HEMOGLOBIN 27.8 PG (27.0-34.0); MEAN CORPUSCULAR HGB CONC 33.2 % (32.0-36.0); MEAN PLATELET VOLUME 7.8 FL (7.0-11.0); MONO % 6.9 % (0.0-8.0); MONOCYTE # 0.8 TH/MM3 (0-0.9); NEUT % 63.9 % (16.0-70.0); PLATELET COUNT 370 TH/MM3 (150-450); RED BLOOD COUNT 4.56 MIL/MM3 (4.00-5.30); WHITE BLOOD COUNT 11.5 TH/MM3 (4.0-11.0)
[2017-07-02 23:59] VITALS: BP 132/83; PULSE 74; RESP 18; O2SAT 99
[2017-07-03 00:11] LABS: BACTERIA, URINE RARE /hpf; BILIRUBIN, URINE NEG (NEG); BLOOD, URINE SMALL (NEG); GLUCOSE,URINE NEG (NEG); KETONE, URINE NEG (NEG); MUCUS URINE FEW /lpf (OCC); NITRITE,URINE NEG (NEG); PH, URINE 5.5 (5.0-8.5); SQUAMOUS EPITHELIAL CELL URINE 6 /hpf (0-5); URINE COLOR YELLOW (YELLW/STRAW); URINE LEUKOCYTE ESTERASE LARGE (NEG)
[2017-07-03 00:13] LABS: ALBUMIN 3.6 GM/DL (3.4-5.0); ALKALINE PHOSPHATASE 90 U/L (45-117); ALT (GPT) 24 U/L (10-53); AST (GOT) 20 U/L (15-37); BLOOD UREA NITROGEN 11 MG/DL (7-18); CALCIUM 8.5 MG/DL (8.5-10.1); CHLORIDE 105 MEQ/L (98-107); CREATININE 0.63 MG/DL (0.50-1.00); GLOMERULAR FILTRATION RATE 111 ML/MIN (>89); GLUCOSE,RANDOM 90 MG/DL (74-106); SODIUM (NA) 141 MEQ/L (136-145); TOTAL BILIRUBIN ADULT 0.2 MG/DL (0.2-1.0); TOTAL PROTEIN 8.2 GM/DL (6.4-8.2)
--- NOTE | 2017-07-03 00:30 | RADRPT ---
EXAM DATE/TIME: 07/03/2017 00:14 [facility] COMPARISON: No previous studies available for comparison. INDICATIONS : Bilateral flank pain. ORAL CONTRAST: No oral contrast ingested. RADIATION DOSE: 32.14 CTDIvol (mGy) MEDICAL HISTORY : Hypertension. Hernia, hiatal. Ovarain cysts. SURGICAL HISTORY : Appendectomy. section. ENCOUNTER: Initial ACUITY: 1 day PAIN SCALE: 7/10 LOCATION: Bilateral flank TECHNIQUE: Volumetric scanning of the abdomen and pelvis was performed. Using automated exposure control and ad justment of the mA and/or kV according to patient size, radiation dose was kept as low as reasonably achievable to obtain optimal diagnostic quality images. DICOM format image data is available electro nically for review and comparison. FINDINGS: LOWER LUNGS: The visualized lower lungs are clear. LIVER: Liver is enlarged with mild diffuse decreased density. No focal abnormality or intraperitoneal dilata tion. Gallbladder is decompressed. SPLEEN: Normal size without lesion. PANCREAS: Within normal limits. KIDNEYS: Normal in size and shape. No evidence for radiopaque calculi or hydronephrosis. No contour deforming abnormality. ADRENAL GLANDS: Within normal limits. VASCULAR: There is no aortic aneurysm. BOWEL/MESENTERY: The stomach, small bowel, and colon demonstrate no acute abnormality. Minimal sigmoid diverticulosis. There is no free intraperitoneal air or fluid. ABDOMINAL WALL: Small periumbilical fat-containing hernia. RETROPERITONEUM: There is no lymphadenopathy. BLADDER: Nearly completely decompressed but otherwise unremarkable by CT. REPRODUCTIVE: Within normal limits. INGUINAL: There is no lymphadenopathy or hernia. MUSCULOSKELETAL: Within normal limits for patient age. CONCLUSION: 1. No acute CT abnormality in the abdomen or pelvis. Specifically, no radiopaque renal calculi or obs tructive uropathy. 2. Hepatomegaly with mild diffusely decreased hepatic density consistent with hepatic steatosis. 3. Minimal sigmoid diverticulosis. 4. Status post appendectomy. 5. Small fat containing periumbilical hernia. Jayson Duque MD on July 03, 2017 at 0:26 Board Certified Radiologist. This report was verified electronically.
[2017-07-03] MEDS ORDERED: MACR100C2 PO (01:21)
[2017-07-03] MEDS ORDERED: PHEN0.4T PO (01:21)
--- NOTE | 2017-07-03 01:23 | PD ---
HPI Chief Complaint: Abdominal Pain Time Seen by Provider: 22:51 Travel History International Travel<30 days: No Contact w/Intl Traveler<30days: No Traveled to known affect area: No History of Present Illness HPI 32-year-old female presents to the emergency department by private transportation for evaluation of 2 3 hours of sudden onset left lower quadrant abdominal pain left flank pain and intermittent hematuria. Patient states symptoms have improved at this time. Patient reports no prior history of kidney stones. Patient is status post appendectomy. Last period was 06/18/17 and normal for her. Patient denies . The patient rates her pain 7/10 intensity. PFSH Past Medical History Narrative Medical Anemia anxiety depression hypertension morbid obesity appendectomy endometriosis; alcohol use; nursing notes reviewed Hx Anticoagulant Therapy: No Anemia: Yes Asthma: Yes Anxiety: Yes Depression: Yes Cardiovascular Problems: Yes (HTN) Chemotherapy: No Cerebrovascular Accident: No Diabetes: No Diminished Hearing: No Gestational Age in Weeks: 17 Hiatal Hernia: Yes Reproductive: Yes (ENDOMETRIOSIS, ovarian cyst) Respiratory: Yes (ASTHMA) Immunizations Current: No Pneumonia: Yes (2009) Tetanus Vaccination: Unknown Influenza Vaccination: No ?: Not LMP: 06/16/2017 Menopausal: No : 3 Para: 2 Miscarriage: 1 : 0 Ectopic : No Ovarian Cysts: Yes Dilation and Curettage (D&C): Yes Tubal Ligation: No Past Surgical History Abdominal Surgery: Yes (EXPLORATORY LAP) Appendectomy: Yes (2009) Section: Yes (X 2) Gynecologic Surgery: Yes (endometriosis) Hysterectomy: No Social History Alcohol Use: Yes (occasional) Tobacco Use: No Substance Use: No Allergies-Medications (Allergen,Severity, Reaction): Coded Allergies: adhesive (Unverified Allergy, Severe, RASH, 07/02/17) lactose (Unverified Allergy, Severe, CONGESTION, 07/02/17) latex (Unverified Allergy, Severe, RASH, 07/02/17) Reported Meds & Prescriptions Reported Meds & Active Scripts Active Ibuprofen 800 Mg Tab 800 Mg PO Q8H PRN Reported Proair Hfa 8.5 GM Inh (Albuterol Sulfate) 90 Mcg/Act Aer 2 Puff INH Q6H PRN 108 mcg/actuation Review of Systems Except as stated in HPI: all other systems reviewed are Neg Physical Exam Narrative GENERAL: Well-developed well-nourished obese female in no acute distress or respiratory distress SKIN: Warm and dry. HEAD: Normocephalic. EYES: No scleral icterus. No injection or drainage. NECK: Supple, trachea midline. No JVD or lymphadenopathy. CARDIOVASCULAR: Regular rate and rhythm without murmurs, gallops, or rubs. RESPIRATORY: Breath sounds equal bilaterally. No accessory muscle use. GASTROINTESTINAL: Abdomen soft, mild reproducible left upper quadrant tenderness , nondistended. Abdominal girth interferes with exam MUSCULOSKELETAL: No cyanosis, or edema. BACK: Nontender without obvious deformity. Left-sided CVA tenderness. Data Data Last Documented VS Vital Signs Date Time Temp Pulse Resp B/P (MAP) Pulse Ox O2 Delivery O2 Flow Rate FiO2 07/02/17 23:59 74 18 132/83 (99) 99 Room Air 07/02/17 22:25 98.5 Orders Orders Complete Blood Count With Diff (07/02/17 22:52) Comprehensive Metabolic Panel (07/02/17 22:52) Urinalysis - C+S If Indicated (07/02/17 22:52) Ed Urine Pregnancytest Poc (07/02/17 22:52) Ct Abd/Pel W/O Iv Contrast (07/02/17 22:52) Ecg Monitoring (07/02/17 22:52) Iv Access Insert/Monitor (07/02/17 22:52) Ketorolac Inj (Toradol Inj) (07/02/17 23:00) Ondansetron Inj (Zofran Inj) (07/02/17 23:00) Sodium Chloride 0.9% Flush (Ns Flush) (07/02/17 23:00) Ed Discharge Order (07/03/17 01:16) Labs Laboratory Tests Test 07/02/17 23:45 White Blood Count 11.5 TH/MM3 Red Blood Count 4.56 MIL/MM3 Hemoglobin 12.7 GM/DL Hematocrit 38.3 % Mean Corpuscular Volume 83.8 FL Mean Corpuscular Hemoglobin 27.8 PG Mean Corpuscular Hemoglobin Concent 33.2 % Red Cell Distribution Width 15.0 % Platelet Count 370 TH/MM3 Mean Platelet Volume 7.8 FL Neutrophils (%) (Auto) 63.9 % Lymphocytes (%) (Auto) 27.2 % Monocytes (%) (Auto) 6.9 % Eosinophils (%) (Auto) 1.3 % Basophils (%) (Auto) 0.7 % Neutrophils # (Auto) 7.4 TH/MM3 Lymphocytes # (Auto) 3.1 TH/MM3 Monocytes # (Auto) 0.8 TH/MM3 Eosinophils # (Auto) 0.1 TH/MM3 Basophils # (Auto) 0.1 TH/MM3 CBC Comment DIFF FINAL Differential Comment Urine Color YELLOW Urine Turbidity HAZY Urine pH 5.5 Urine Specific [place] 1.025 Urine Protein TRACE mg/dL Urine Glucose (UA) NEG mg/dL Urine Ketones NEG mg/dL Urine Occult Blood SMALL Urine Nitrite NEG Urine Bilirubin NEG Urine Urobilinogen LESS THAN 2.0 MG/DL Urine Leukocyte Esterase LARGE Urine RBC 1 /hpf Urine WBC 8 /hpf Urine Squamous Epithelial Cells 6 /hpf Urine Bacteria RARE /hpf Urine Mucus FEW /lpf Microscopic Urinalysis Comment CULT NOT INDICATED Blood Urea Nitrogen 11 MG/DL Creatinine 0.63 MG/DL Random Glucose 90 MG/DL Total Protein 8.2 GM/DL Albumin 3.6 GM/DL Calcium Level 8.5 MG/DL Alkaline Phosphatase 90 U/L Aspartate Amino Transf (AST/SGOT) 20 U/L Alanine Aminotransferase (ALT/SGPT) 24 U/L Total Bilirubin 0.2 MG/DL Sodium Level 141 MEQ/L Potassium Level 3.6 MEQ/L Chloride Level 105 MEQ/L Carbon Dioxide Level 31.0 MEQ/L Anion Gap 5 MEQ/L Estimat Glomerular Filtration Rate 111 ML/MIN [facility] Medical Decision Making Medical Screen Exam Complete: Yes Emergency Medical Condition: Yes Medical Record Reviewed: Yes Interpretation(s) [id number] hCG: Negative Urinalysis: Positive red blood cells few white blood cells positive bacteria culture not indicated Last Impressions Abdomen/Pelvis CT 07/02/17 9011 Signed Impressions: Service Date/Time: July 00:14 - CONCLUSION: 1. No acute CT abnormality in the abdomen or pelvis. Specifically, no radiopaque renal calculi or obstructive uropathy. 2. Hepatomegaly with mild diffusely decreased hepatic density consistent with hepatic steatosis. 3. Minimal sigmoid diverticulosis. 4. Status post appendectomy. 5. Small fat containing periumbilical hernia. Jayson Duque MD CBC & BMP Diagram 07/02/17 23:45 Total Protein 8.2, Albumin 3.6, Calcium Level 8.5, Alkaline Phosphatase 90, Aspartate Amino Transf (AST/SGOT) 20, Alanine Aminotransferase (ALT/SGPT) 24, Total Bilirubin 0.2 Vital Signs Date Time Temp Pulse Resp B/P (MAP) Pulse Ox O2 Delivery O2 Flow Rate FiO2 07/02/17 23:59 74 18 132/83 (99) 99 Room Air 07/02/17 22:25 98.5 89 20 156/79 (104) 100 Differential Diagnosis Flank pain, renal colic, pyelonephritis, UTI, ovarian cyst rupture, ovarian torsion, ectopic Narrative Course IV access obtained specimens collections of resulting Patient sent for imaging [id number] hCG negative CT abdomen and pelvis reveals no obstructive uropathy or acute intra-abdominal pelvic process to explain patient's pain Urinalysis does show she had blood cells white blood cells and rare bacteria due to squamous epithelial cells 6 cultures not indicated Based on patient's presentation of hematuria with his comfort with urination and flank pain patient will be given a 3 day course of Macrobid and is encouraged to follow-up with her primary care provider Diagnosis Primary Impression: Cystitis Referrals: Primary Care Physician call for appointment Patient Instructions: General Instructions Additional Instructions: Increase fluid hydration Take medications as prescribed Follow-up with primary care provider Take as tolerated ibuprofen per package directions Return to the emergency department for any concerns or change in condition Med/Other Pt SpecificInfo: Prescription(s) given Scripts Nitrofurantoin Monohydrate Macrocrystals (Macrobid) 100 Mg Cap 100 MG PO BID for Infection, #6 CAP 0 Refills Prov: Padmini Fernandez MD 07/03/17 Phenazopyridine (Pyridium) 100 Mg Tab 100 MG PO Q8H Y for DYSURIA, #6 TAB 0 Refills Prov: Padmini Fernandez MD 07/03/17 Disposition: DISCHARGE HOME Condition: Stable Padmini Fernandez MD Jul 03, 2017 01:23
== END 2017-07-03 01:39 | disposition home or self-care (01) ==
LOC: NEPC 22:19
DX: N30.90 Cystitis, unspecified without hematuria (principal); J45.909 Unspecified asthma, uncomplicated; I10 Essential (primary) hypertension; E66.01 Morbid (severe) obesity due to excess calories; Z91.040 Latex allergy status; Z91.011 Allergy to milk products; Z91.048 Other nonmedicinal substance allergy status
CPT/HCPCS: 74176; 80053; 81001; 84703; 85025; 96374; 96375; 99284; J1885; J2405

== ENCOUNTER 2017-07-11 00:08 | Emergency (ER) | payer MEDICAID ==
[~2017-07-11 00:08] MED LIST changes: -CEPH-460 PO; -GUAISYP4 PO; +MACR100C2 PO; -NON-500T13 PO
[2017-07-11 01:39] VITALS: BP 174/94; PULSE 77; RESP 18; TEMP 97.9; O2SAT 100
== END 2017-07-11 03:15 | disposition left against medical advice (07) ==
LOC: NED 03:10
DX: R10.9 Unspecified abdominal pain (principal)
CPT/HCPCS: 99281

== ENCOUNTER 2017-08-10 00:59 | Emergency (ER) | payer MEDICAID ==
[~2017-08-10] VITALS: Ht 162.6 cm; Wt 167.0 kg
[2017-08-10 01:06] VITALS: BP 144/69; PULSE 84; RESP 20; TEMP 98.4; O2SAT 98
[2017-08-10] MEDS ORDERED: IBUPROFEN 800 MG TAB PO ONE (03:00)
[2017-08-10] MEDS ORDERED: CYCLOBENZAPRINE HCL 10 MG TAB PO ONE (03:00)
[2017-08-10] MEDS ORDERED: CYCL10TA PO (03:06)
[2017-08-10] MEDS ORDERED: IBUP1TAB7 PO (03:06)
--- NOTE | 2017-08-10 03:06 | PD ---
HPI Chief Complaint: Injury Time Seen by Provider: 02:58 Travel History International Travel<30 days: No Contact w/Intl Traveler<30days: No Traveled to known affect area: No History of Present Illness HPI Patient is a 32-year-old female presenting to emerge from for evaluation of left foot pain. Patient initially stated she hurt 2 hours ago while getting into her vehicle. She then stated she hurt it 6 hours ago at work. She reports that she twisted and since that time she has been unable to bear weight on the ball of her foot. Patient reported initially that she took acetaminophen 2 hours prior to arrival. She then stated she took it for several hours prior to arrival. She reports pain is 8 out of 10, she states is sore and tender. Pain is worse with ambulation. She states since she injured her foot she has not walked. Symptom onset was sudden, symptoms are moderate in nature. No alleviating factors. PFSH Past Medical History Hx Anticoagulant Therapy: No Anemia: Yes Asthma: Yes Anxiety: Yes Depression: Yes Gestational Age in Weeks: 17 Hiatal Hernia: Yes Hypertension: Yes Reproductive: Yes (ENDOMETRIOSIS, ovarian cyst) Respiratory: Yes (ASTHMA) Pneumonia: Yes (2009) Influenza Vaccination: No ?: Not Menopausal: No : 3 Para: 2 Miscarriage: 1 : 0 Ectopic : No Ovarian Cysts: Yes Dilation and Curettage (D&C): Yes Tubal Ligation: No Past Surgical History Abdominal Surgery: Yes (EXPLORATORY LAP) Appendectomy: Yes (2009) Section: Yes (X 2) Gynecologic Surgery: Yes (endometriosis) Hysterectomy: No Social History Alcohol Use: No Tobacco Use: No Substance Use: No Allergies-Medications (Allergen,Severity, Reaction): Coded Allergies: adhesive (Unverified Allergy, Severe, RASH, 08/10/17) lactose (Unverified Allergy, Severe, CONGESTION, 08/10/17) latex (Unverified Allergy, Severe, RASH, 08/10/17) Reported Meds & Prescriptions Reported Meds & Active Scripts Active Macrobid (Nitrofurantoin Monoh/Nitrofur Macro) 100 Mg Cap 100 Mg PO BID Pyridium (Phenazopyridine HCl) 100 Mg Tab 100 Mg PO Q8H PRN Ibuprofen 800 Mg Tab 800 Mg PO Q8H PRN Reported Proair Hfa 8.5 GM Inh (Albuterol Sulfate) 90 Mcg/Act Aer 2 Puff INH Q6H PRN 108 mcg/actuation Review of Systems Except as stated in HPI: all other systems reviewed are Neg Musculoskeletal: Positive: Myalgias, Pain Physical Exam Narrative GENERAL: Obese, well-developed, alert female. Presenting in no acute distress SKIN: Warm and dry. HEAD: Normocephalic. EYES: No scleral icterus. No injection or drainage. NECK: Supple, trachea midline. No JVD or lymphadenopathy. CARDIOVASCULAR: Regular rate and rhythm without murmurs, gallops, or rubs. RESPIRATORY: Breath sounds equal bilaterally. No accessory muscle use. GASTROINTESTINAL: Abdomen soft, non-tender, nondistended. MUSCULOSKELETAL: No cyanosis, or edema. No obvious deformities, 2+ dorsalis pedal pulse. No lesions, change in pigmentation. No tenderness to palpation. BACK: Nontender without obvious deformity. No CVA tenderness. Data Data Last Documented VS Vital Signs Date Time Temp Pulse Resp B/P (MAP) Pulse Ox O2 Delivery O2 Flow Rate FiO2 08/10/17 01:06 98.4 84 20 144/69 (94) 98 Orders Orders Ibuprofen (Motrin) (08/10/17 03:00) Cyclobenzaprine (Flexeril) (08/10/17 03:00) Crutches (08/10/17 02:58) [facility] Medical Decision Making Medical Screen Exam Complete: Yes Emergency Medical Condition: Yes Interpretation(s) Vital Signs Date Time Temp Pulse Resp B/P (MAP) Pulse Ox O2 Delivery O2 Flow Rate FiO2 08/10/17 01:06 98.4 84 20 144/69 (94) 98 Differential Diagnosis Sprain versus strain versus contusion versus less likely fracture Narrative Course Patient is a 32-year-old female presenting to emerge from for evaluation of left foot pain. Patient's initial account of the injury change from injury and getting into a vehicle to injuring it at work. There are no obvious deformities , and nontender to palpation. Patient continues to state she cannot bear weight so she will be given a pair crutches, she is advised to increase weightbearing as tolerated. She will be given ibuprofen and Flexeril now. She is encouraged to follow-up with her doctor. She was advised to rest, ice, elevate extremity. She was strongly encouraged return to emergency department should her symptoms not improved with conservative management. She verbalized understanding of these instructions. Patient stable for discharge. Diagnosis Primary Impression: Foot pain, left Referrals: Primary Care Physician 1 week Patient Instructions: Foot Sprain (ED), General Instructions Additional Instructions: Follow-up with your primary doctor Rest, ice, elevate extremity Continue gentle range of motion exercises, increase weightbearing as tolerated Take medications as directed Return to emergency department any new or worsening symptoms Med/Other Pt SpecificInfo: Prescription(s) given Scripts Cyclobenzaprine (Flexeril) 10 Mg Tab 10 MG PO TID Y for MUSCLE SPASM, #30 TAB 0 Refills Prov: Julianna Hawk 08/10/17 Ibuprofen (Ibuprofen) 800 Mg Tab 800 MG PO Q6HR Y for PAIN, #40 TAB 0 Refills Prov: Julianna Hawk 08/10/17 Disposition: 01 DISCHARGE HOME Condition: Stable Julianna Hawk Aug 10, 2017 03:06
== END 2017-08-10 03:29 | disposition home or self-care (01) ==
LOC: NEPD 00:59
DX: M79.672 Pain in left foot (principal)
CPT/HCPCS: 99283; E0113